=== PATIENT | male | born 1990 | race Caucasian/White ===

== ENCOUNTER 2020-06-06 16:05 | Emergency (ER) | payer SELFPAY ==
[~2020-06-06] VITALS: Ht 167.6 cm; Wt 78.9 kg
[2020-06-06 16:16] VITALS: Ht 167.6 cm; Wt 78.9 kg
[2020-06-06 17:02] VITALS: BP 127/72
== END 2020-06-06 17:28 | disposition home or self-care (01) ==
LOC: ED 16:05
DX: S61.412A Laceration without foreign body of left hand, initial encounter (principal); W45.8XXA Other foreign body or object entering through skin, initial encounter; Y93.89 Activity, other specified; Y92.89 Other specified places as the place of occurrence of the external cause; Y99.0 Civilian activity done for income or pay
CPT/HCPCS: J2001